=== PATIENT | male | born 1975 | race Caucasian/White ===

== ENCOUNTER 2019-01-31 10:31 | Outpatient (REF) | payer MEDICARE, MEDICAID, SELFPAY ==
[2019-01-31 21:41] LABS: ALT 27 U/L (16-63); AST 15 U/L (15-37); Alkaline Phosphatase 88 U/L (46-116); Anion Gap 11.3 mmol/L (3-11); BUN 22 mg/dL (7-18); Bilirubin, Total 0.1 mg/dL (0.2-1.0); CO2 23.7 mmol/L (21.0-32.0); CREATININE 0.93 mg/dL (0.70-1.30); Calcium 9.6 mg/dL (8.5-10.1); Chloride 103 mmol/L (98-107); Glucose 105 mg/dL (74-106); Potassium 4.8 mmol/L (3.5-5.1); Sodium 138 mmol/L (136-145); Total Protein 7.5 g/dL (6.4-8.2)
== END 2019-01-31 10:51 ==
LOC: NCHCN 10:31
PROVIDERS: Visit Provider Internal Medicine
DX: I10 Essential (primary) hypertension (principal)
CPT/HCPCS: 80053

== ENCOUNTER 2019-03-22 10:05 | Outpatient (REF) | payer MEDICARE, MEDICAID, SELFPAY ==
[2019-03-22 21:07] LABS: Abs Immature Grans 0.03 k/cumm (0.0-0.09); Absolute Basophil Count 0.04 k/cumm (0.0-0.2); Basophils % 0.3; Eosinophils % 2.5; HGB 16.1 g/dL (13.5-17.5); Immature Grans % 0.2 %; Lymphocytes % 28.7; Mean Corp. HGB Concentration 32.9 g/dL (32.0-36.0); Mean Corpuscular Hemoglobin 30.8 pg (27.0-33.0); Mean Corpuscular Volume 93.9 fL (80-95); Mean Platelet Volume 11.3 fL (8.0-11.0); Monocytes % 6.6; Neutrophils % 61.7; Platelet Count 307 x1000/uL (130-400); RBC 5.22 m/cumm (4.50-6.00); White Blood Cell Count 12.19 k/cumm (4.4-10.8)
[2019-03-22 21:17] LABS: Absolute Neutrophil Count 7.52 k/cumm (1.2-6.7)
[2019-03-22 21:26] LABS: Calculated LDL 144 mg/dL; Cholesterol 226 mg/dL (<200); HDL Cholesterol 46 mg/dL (40-60); Triglyceride 180 mg/dL (<150)
[2019-03-26 14:35] LABS: HCV RNA Detection Quantitative 0 IU/mL (Undetected)
== END 2019-03-22 10:25 ==
LOC: LBN 10:05
PROVIDERS: Visit Provider Internal Medicine
DX: B19.20 Unspecified viral hepatitis C without hepatic coma (principal); I10 Essential (primary) hypertension; R10.9 Unspecified abdominal pain
CPT/HCPCS: 80061; 85025; 87522

== ENCOUNTER 2019-03-29 13:36 | Outpatient (REF) | payer MEDICARE, MEDICAID, SELFPAY ==
[2019-04-03 14:22] LABS: Helicobacter pylori Ag, Feces Negative (Negative)
== END 2019-03-29 13:56 ==
LOC: NCHCN 13:36
PROVIDERS: Visit Provider Internal Medicine
DX: R10.9 Unspecified abdominal pain (principal)
CPT/HCPCS: 87338

== ENCOUNTER 2019-10-18 20:12 | Outpatient (REF) | payer MEDICARE, MEDICAID, SELFPAY ==
[2019-10-18 20:41] LABS: HCT 48.5 % (40.0-50.0); HGB 15.8 g/dL (13.5-17.5); MCH 31.2 pg (27.0-33.0); MCHC 32.6 % (32.0-36.0); MCV 95.8 fL (80-95); MPV 11.7 fL (8.0-11.0); RBC 5.06 10^6/uL (4.36-5.78); RDW 12.6 % (11.8-14.1); RDW-SD 44.6 fL; WBC 11.02 10^3/uL (4.4-10.8)
[2019-10-18 21:08] LABS: Bilirubin Negative (Negative); Blood Negative (Negative); Clarity Clear (Clear); Glucose Negative (Negative); Ketones Negative (Negative); Leukocyte Esterase Negative (Negative); Nitrite Negative (Negative); Specific Gravity 1.025 (1.005-1.025); Urobilinogen 0.2 EU/dL (Up TO 0.2)
[2019-10-18 21:27] LABS: ALT 36 U/L (16-63); AST 20 U/L (15-37); Albumin 3.9 g/dL (3.4-5.0); Alkaline Phosphatase 92 U/L (46-116); Anion Gap 9.9 mmol/L (3-11); BUN 11 mg/dL (7-18); Bilirubin, Total 0.2 mg/dL (0.2-1.0); CO2 27.1 mmol/L (21.0-32.0); CREATININE 0.99 mg/dL (0.70-1.30); Calcium 9.5 mg/dL (8.5-10.1); Chloride 103 mmol/L (98-107); Glucose 98 mg/dL (74-106); Potassium 4.5 mmol/L (3.5-5.1); Sodium 140 mmol/L (136-145); Total Protein 7.3 g/dL (6.4-8.2)
[2019-10-19 08:41] LABS: Absolute Basophil Count 0.11 10^3/uL (0.0-0.2); Absolute Eosinophil Count 0.22 10^3/uL (0.0-0.7); Absolute Lymphocyte Count 3.75 10^3/uL (1.2-3.4); Absolute Monocyte Count 0.66 10^3/uL (0.1-0.8); Absolute Neutrophil Count 6.28 10^3/uL (1.2-6.7); Atypical Lymphocytes % 2
[2019-10-19 08:42] LABS: Diff Comment Manual Differential; Platelet Count 283 10^3/uL (130-400); RBC Morphology Normal
[2019-10-19 08:44] LABS: Lipase 170 U/L (73-393)
== END 2019-10-18 20:32 ==
LOC: NCHCN 20:12
PROVIDERS: Visit Provider Nurse Practitioner Family
DX: R10.9 Unspecified abdominal pain (principal); F10.20 Alcohol dependence, uncomplicated; I10 Essential (primary) hypertension
CPT/HCPCS: 80053; 83690; 85027; 81003; 85007

== ENCOUNTER 2020-11-04 18:13 | Outpatient (REF) | payer MEDICARE, MEDICAID, SELFPAY ==
[2020-11-04 21:20] LABS: ALT 53 U/L (16-63); AST 38 U/L (15-37); Albumin 3.9 g/dL (3.4-5.0); Alkaline Phosphatase 91 U/L (46-116); Anion Gap 9.4 mmol/L (3-11); BUN 16 mg/dL (7-18); Bilirubin, Total 0.2 mg/dL (0.2-1.0); CO2 24.6 mmol/L (21.0-32.0); Calcium 9.4 mg/dL (8.5-10.1); Chloride 104 mmol/L (98-107); Glucose 91 mg/dL (74-106); Potassium 4.6 mmol/L (3.5-5.1); Sodium 138 mmol/L (136-145); Total Protein 7.6 g/dL (6.4-8.2)
== END 2020-11-04 18:14 | disposition home or self-care (01) ==
LOC: NCHCN 18:13
PROVIDERS: Referring Provider Nurse Practitioner Family; Visit Provider Nurse Practitioner Family
DX: I10 Essential (primary) hypertension (principal)
CPT/HCPCS: 80053

== ENCOUNTER 2020-12-15 01:58 | Outpatient (CLI) | payer OTHER, MEDICARE, MEDICAID, SELFPAY ==
--- NOTE | 2020-12-15 11:27 | DI.RAD_ITS ---
Exam(s) XR ANKLE LT 2V EXAM: XR ANKLE LT 2V CLINICAL HISTORY: DISABILITY DETERMINATION,Z02.71,ANKLE PAIN. TECHNIQUE: 2D digital imaging was performed. COMPARISON: None FINDINGS: Limited two view study reveals no evidence of fracture nor widening of the ankle mortise. Talar dome appears unremarkable. No degenerative changes evident in the ankle and subtalar joints. No osseous tarsal coalition. IMPRESSION: No significant radiographic findings on these two views of the left ankle. DATA REPOSITORY: RADIATION DOSE DELIVERED:
== END 2020-12-15 02:18 ==
PROVIDERS: Visit Provider Pediatrics Pediatric Rheumatology
DX: Z02.71 Encounter for disability determination (principal); M25.572 Pain in left ankle and joints of left foot
CPT/HCPCS: 73600

== ENCOUNTER 2021-02-18 01:53 | Outpatient (CLI) | payer OTHER, MEDICARE, MEDICAID, SELFPAY ==
--- NOTE | 2021-02-18 10:54 | DI.RAD_ITS ---
Exam(s) XR ANKLE RT 2V EXAM: XR ANKLE RT 2V CLINICAL HISTORY: RT ANKLE PAIN, DISABILITY DETERMINATION, Z02.71. TECHNIQUE: 2D digital imaging was performed of the right ankle. Two images were obtained. AP and l ateral views were obtained. COMPARISON: No exams were available for comparison FINDINGS: The examination is limited due to the limited number of views. BONES: No acute fracture is present. No bony destructive lesion is seen. There are hypertrophic jin ges seen about the ankle particularly laterally. Bony productive changes are seen in the lateral ank le at the distal fibula and lateral calcaneus. There appear to be hypertrophic changes seen associat ed with the posterior talocalcaneal joint. Note is also made of spurring on the dorsal aspect of the head of the 1st metatarsal. JOINTS: The ankle mortise is normally aligned. SOFT TISSUE: Normal. IMPRESSION: Degenerative changes seen of the right ankle. A CT scan of the ankle may provide better detail about these changes. DATA REPOSITORY: RADIATION DOSE DELIVERED:
--- NOTE | 2021-02-18 10:54 | DI.RAD_ITS ---
Exam(s) XR HIP RT COMPLETE AP PELVIS EXAM: XR HIP RT COMPLETE AP PELVIS CLINICAL HISTORY: RT HIP AND PELVIC PAIN, DISABILITY DETERMINATION, Z02.71. TECHNIQUE: 2D digital imaging was performed of the right hip. Two images were obtained. AP pelvis a nd lateral right hip views were obtained. COMPARISON: No exams were available for comparison FINDINGS: BONES: No acute fracture is present. No bony destructive lesion is seen. JOINTS: No dislocation present. Mild hypertrophic changes are seen at the right acetabulum. SOFT TISSUE: Atherosclerosis is present. IMPRESSION: Mild degenerative changes of the right hip. DATA REPOSITORY: RADIATION DOSE DELIVERED:
== END 2021-02-18 02:13 ==
PROVIDERS: Visit Provider Pediatrics Pediatric Rheumatology
DX: M25.551 Pain in right hip (principal); R10.2 Pelvic and perineal pain; M16.11 Unilateral primary osteoarthritis, right hip; M25.571 Pain in right ankle and joints of right foot; M19.071 Primary osteoarthritis, right ankle and foot; Z02.71 Encounter for disability determination
CPT/HCPCS: 73502; 73600

== ENCOUNTER 2022-03-30 16:26 | Outpatient (REF) | payer MEDICARE, MEDICAID, SELFPAY ==
[2022-03-30 21:12] LABS: ALT 30 U/L (16-63); AST 24 U/L (15-37); Albumin 3.8 g/dL (3.4-5.0); Alkaline Phosphatase 106 U/L (46-116); Anion Gap 9.7 mmol/L (3-11); BUN 16 mg/dL (7-18); Bilirubin, Total 0.2 mg/dL (0.2-1.0); CO2 23.3 mmol/L (21.0-32.0); Calcium 9.8 mg/dL (8.5-10.1); Calculated LDL 99 mg/dL (<100); Chloride 103 mmol/L (98-107); Cholesterol 232 mg/dL (<200); Estimated GFR 93.42 (mL/min/1.73m2); Glucose 111 mg/dL (74-106); HDL Cholesterol 62 mg/dL (40-60); Potassium 4.6 mmol/L (3.5-5.1); Sodium 136 mmol/L (136-145); Total Protein 7.8 g/dL (6.4-8.2); Triglyceride 359 mg/dL (<150)
[2022-03-30 21:34] LABS: Bilirubin Negative (Negative); Blood Negative (Negative); Clarity Clear (Clear); Glucose Negative (Negative); Ketones Negative (Negative); Leukocyte Esterase Negative (Negative); Nitrite Negative (Negative); Specific Gravity >= 1.030 (1.005-1.025); Urobilinogen 0.2 EU/dL (Up TO 0.2); pH 5.5 (5-8)
== END 2022-03-30 16:27 | disposition home or self-care (01) ==
LOC: NCHCN 16:26
PROVIDERS: Visit Provider Nurse Practitioner Family
DX: I10 Essential (primary) hypertension (principal); E66.3 Overweight; E78.89 Other lipoprotein metabolism disorders; Z12.5 Encounter for screening for malignant neoplasm of prostate; R82.998 Other abnormal findings in urine; R73.09 Other abnormal glucose
CPT/HCPCS: 80053; 80061; 84153; 81003

== ENCOUNTER 2022-06-14 16:20 | Outpatient (REF) | payer MEDICARE, MEDICAID, SELFPAY | END 2022-06-14 16:21 | disposition home or self-care (01) | LOC: NCHCN 16:20 | PROVIDERS: Visit Provider Nurse Practitioner Family | DX: N52.9 Male erectile dysfunction, unspecified (principal); Z12.5 Encounter for screening for malignant neoplasm of prostate | CPT/HCPCS: 84153 ==

== ENCOUNTER 2023-08-25 14:59 | Outpatient (REF) | payer MEDICARE, MEDICAID, SELFPAY ==
[2023-08-25 14:25] LABS: HCT 48.6 % (40.0-50.0); HGB 16.5 g/dL (13.5-17.5); MCH 31.9 pg (27.0-33.0); MCV 94 fL (80-95); MPV 11.6 fL (8.0-11.0); Platelet Count 209 10^3/uL (130-400); RBC 5.18 10^6/uL (4.36-5.78); RDW 13.3 % (11.8-14.1); RDW-SD 46.5 fL; WBC 12.91 10^3/uL (4.4-10.8)
[2023-08-25 15:02] LABS: ALT 42 U/L (16-63); AST 23 U/L (15-37); Albumin 3.9 g/dL (3.4-5.0); Alkaline Phosphatase 96 U/L (46-116); Anion Gap 14.2 mmol/L (3-11); BUN 16 mg/dL (7-18); Bilirubin, Total 0.45 mg/dL (0.2-1.0); CO2 21.8 mmol/L (21.0-32.0); CREATININE 0.9 mg/dL (0.70-1.30); Calcium 9.6 mg/dL (8.5-10.1); Chloride 103 mmol/L (98-107); Estimated GFR 105.35 (mL/min/1.73m2); Glucose 112 mg/dL (74-106); Potassium 4.5 mmol/L (3.5-5.1); Sodium 139 mmol/L (136-145); TSH (W/Ref FT4) 1.84 uIU/mL (0.36-3.74); Total Protein 7.5 g/dL (6.4-8.2); Vitamin D 25 Total 29.2 ng/mL (30-100)
[2023-08-25 15:15] LABS: GGT 103 U/L (15-85); PHOSPHORUS 3.9 mg/dL (2.6-4.7)
[2023-08-26 10:09] LABS: Parathyroid Hormone,Intact 29 pg/mL (19-88)
== END 2023-08-25 15:00 | disposition home or self-care (01) ==
LOC: NCHCN 14:59
PROVIDERS: Visit Provider Nurse Practitioner Family
DX: R74.8 Abnormal levels of other serum enzymes (principal)
CPT/HCPCS: 80053; 82306; 85027; 82977; 83970; 84100; 84443